=== PATIENT | male | born 1935 | race Caucasian/White ===

== ENCOUNTER 2016-12-08 09:56 | Outpatient (CLI) | payer MEDICARE, OTHER | END 2016-12-08 09:58 | LOC: LAB 09:56 | PROVIDERS: ATTEND Internal Medicine Cardiovascular Disease | DX: Z51.81 Encounter for therapeutic drug level monitoring (principal); Z79.01 Long term (current) use of anticoagulants; I48.0 Paroxysmal atrial fibrillation | CPT/HCPCS: 36415; 85610 ==

== ENCOUNTER 2016-12-23 10:27 | Outpatient (CLI) | payer MEDICARE, OTHER | END 2016-12-23 10:30 | LOC: LAB 10:27 | PROVIDERS: ATTEND Internal Medicine Cardiovascular Disease | DX: I48.0 Paroxysmal atrial fibrillation (principal); Z79.01 Long term (current) use of anticoagulants | CPT/HCPCS: 36415; 85610 ==

== ENCOUNTER 2017-02-02 09:50 | Outpatient (CLI) | payer MEDICARE, OTHER ==
[2017-02-02 10:38] LABS: eGFR (African) > 60; eGFR (Non-African) > 60
== END 2017-02-02 09:52 ==
LOC: LAB 09:50
PROVIDERS: ATTEND Internal Medicine Cardiovascular Disease
DX: Z51.81 Encounter for therapeutic drug level monitoring (principal); Z79.01 Long term (current) use of anticoagulants; I48.0 Paroxysmal atrial fibrillation
CPT/HCPCS: 36415; 80048; 85610

== ENCOUNTER 2017-03-04 09:44 | Outpatient (CLI) | payer MEDICARE, OTHER | END 2017-03-04 09:45 | LOC: LAB 09:44 | PROVIDERS: ATTEND Internal Medicine Cardiovascular Disease | DX: Z51.81 Encounter for therapeutic drug level monitoring (principal); Z79.01 Long term (current) use of anticoagulants; I48.0 Paroxysmal atrial fibrillation | CPT/HCPCS: 36415; 85610 ==

== ENCOUNTER 2017-04-15 09:30 | Outpatient (CLI) | payer MEDICARE, OTHER | END 2017-04-15 09:32 | LOC: LAB 09:30 | PROVIDERS: ATTEND Internal Medicine Cardiovascular Disease | DX: I48.91 Unspecified atrial fibrillation (principal); Z79.01 Long term (current) use of anticoagulants | CPT/HCPCS: 36415; 85610 ==

== ENCOUNTER 2017-05-14 08:23 | Outpatient (CLI) | payer MEDICARE, OTHER | END 2017-05-14 08:24 | LOC: LAB 08:23 | PROVIDERS: ATTEND Internal Medicine Cardiovascular Disease | DX: I48.0 Paroxysmal atrial fibrillation (principal) | CPT/HCPCS: 36415; 85610 ==

== ENCOUNTER 2017-05-28 10:22 | Outpatient (CLI) | payer MEDICARE, OTHER | END 2017-05-28 10:23 | LOC: LAB 10:22 | PROVIDERS: ATTEND Internal Medicine Cardiovascular Disease | DX: I48.0 Paroxysmal atrial fibrillation (principal) | CPT/HCPCS: 36415; 85610 ==

== ENCOUNTER 2017-06-18 08:43 | Outpatient (CLI) | payer MEDICARE, OTHER | END 2017-06-18 09:06 | LOC: LAB 08:43 | PROVIDERS: ATTEND Internal Medicine Cardiovascular Disease | DX: I48.0 Paroxysmal atrial fibrillation (principal) | CPT/HCPCS: 36415; 85610 ==

== ENCOUNTER 2017-07-22 09:28 | Outpatient (CLI) | payer MEDICARE, OTHER | END 2017-07-22 09:30 | LOC: LAB 09:28 | PROVIDERS: ATTEND Internal Medicine Cardiovascular Disease | DX: I48.0 Paroxysmal atrial fibrillation (principal) | CPT/HCPCS: 36415; 85610 ==

== ENCOUNTER 2017-09-02 09:00 | Outpatient (CLI) | payer MEDICARE, OTHER | END 2017-09-02 09:02 | LOC: LAB 09:00 | PROVIDERS: ATTEND Internal Medicine Cardiovascular Disease | DX: I48.0 Paroxysmal atrial fibrillation (principal) | CPT/HCPCS: 36415; 85610 ==

== ENCOUNTER 2017-10-14 10:08 | Outpatient (CLI) | payer MEDICARE, OTHER | END 2017-10-14 10:30 | LOC: LAB 10:08 | PROVIDERS: ATTEND Internal Medicine Cardiovascular Disease | DX: I48.0 Paroxysmal atrial fibrillation (principal) | CPT/HCPCS: 36415; 85610 ==

== ENCOUNTER 2017-11-20 09:36 | Outpatient (CLI) | payer MEDICARE, OTHER ==
[2017-11-20 10:02] LABS: MEAN CORPUSCULAR HEMOGLOBIN 32.6 pg (28.0-34.0); MEAN CORPUSCULAR VOLUME 95.8 fl (80.0-100.0)
[2017-11-20 10:35] LABS: SEGMENTED NEUTROPHILS % 42 % (39-79)
[2017-11-20 11:25] LABS: eGFR (African) > 60; eGFR (Non-African) > 60
== END 2017-11-20 09:37 ==
LOC: LAB 09:36
PROVIDERS: ATTEND Internal Medicine Cardiovascular Disease
DX: I48.0 Paroxysmal atrial fibrillation (principal); Z51.81 Encounter for therapeutic drug level monitoring
CPT/HCPCS: 36415; 80053; 82306; 84439; 84443; 84481; 85025; 85610; 86038; 86140

== ENCOUNTER 2018-01-04 09:38 | Outpatient (CLI) | payer MEDICARE, OTHER | END 2018-01-04 09:40 | LOC: LAB 09:38 | PROVIDERS: ATTEND Internal Medicine Cardiovascular Disease | DX: I48.0 Paroxysmal atrial fibrillation (principal); Z79.899 Other long term (current) drug therapy | CPT/HCPCS: 36415; 85610 ==

== ENCOUNTER 2018-02-16 08:48 | Outpatient (CLI) | payer MEDICARE, OTHER | END 2018-02-16 08:50 | LOC: LAB 08:48 | PROVIDERS: ATTEND Internal Medicine Cardiovascular Disease | DX: I48.0 Paroxysmal atrial fibrillation (principal); Z79.899 Other long term (current) drug therapy | CPT/HCPCS: 36415; 85610 ==

== ENCOUNTER 2018-03-22 10:18 | Outpatient (CLI) | payer MEDICARE, OTHER | END 2018-03-26 10:20 | LOC: LAB 10:18 | PROVIDERS: ATTEND Internal Medicine Cardiovascular Disease | DX: I48.0 Paroxysmal atrial fibrillation (principal); Z79.899 Other long term (current) drug therapy | CPT/HCPCS: 36415; 85610 ==

== ENCOUNTER 2018-03-26 08:49 | Outpatient (CLI) | payer MEDICARE, OTHER | END 2018-03-26 08:50 | LOC: LAB 08:49 | PROVIDERS: ATTEND Internal Medicine Cardiovascular Disease | DX: Z79.899 Other long term (current) drug therapy (principal); I48.0 Paroxysmal atrial fibrillation | CPT/HCPCS: 36415; 85610 ==

== ENCOUNTER 2018-03-29 07:50 | Outpatient (CLI) | payer MEDICARE, OTHER ==
[2018-03-29 08:22] LABS: BASOPHILS % 0.3 (0.0-1.5); EOSINOPHILS % 0.5 % (0.0-6.8); MEAN CORPUSCULAR HEMOGLOBIN 32.1 pg (28.0-34.0); MEAN CORPUSCULAR VOLUME 96.1 fl (80.0-100.0); MONOCYTES % 1.3 % (0.0-11.0); NEUTROPHILS # 1.9 # k/uL (1.4-7.7)
== END 2018-03-29 07:52 ==
LOC: LAB 07:50
PROVIDERS: ATTEND Family Medicine
DX: R79.1 Abnormal coagulation profile (principal)
CPT/HCPCS: 36415; 85025; 85610

== ENCOUNTER 2018-04-01 08:32 | Outpatient (CLI) | payer MEDICARE, OTHER | END 2018-04-01 08:33 | LOC: LAB 08:32 | PROVIDERS: ATTEND Internal Medicine Cardiovascular Disease | DX: Z79.01 Long term (current) use of anticoagulants (principal); I48.0 Paroxysmal atrial fibrillation | CPT/HCPCS: 36415; 85610 ==

== ENCOUNTER 2018-04-05 09:33 | Outpatient (CLI) | payer MEDICARE, OTHER | END 2018-04-05 09:35 | LOC: LAB 09:33 | PROVIDERS: ATTEND Internal Medicine Cardiovascular Disease | DX: I48.0 Paroxysmal atrial fibrillation (principal); Z79.01 Long term (current) use of anticoagulants | CPT/HCPCS: 36415; 85610 ==

== ENCOUNTER 2018-04-12 09:37 | Outpatient (CLI) | payer MEDICARE, OTHER | END 2018-04-12 09:40 | LOC: LAB 09:37 | PROVIDERS: ATTEND Internal Medicine Cardiovascular Disease | DX: I48.0 Paroxysmal atrial fibrillation (principal); Z79.01 Long term (current) use of anticoagulants | CPT/HCPCS: 36415; 85610 ==

== ENCOUNTER 2018-04-26 09:37 | Outpatient (CLI) | payer MEDICARE, OTHER | END 2018-04-26 09:40 | LOC: LAB 09:37 | PROVIDERS: ATTEND Internal Medicine Cardiovascular Disease | DX: I48.0 Paroxysmal atrial fibrillation (principal); Z79.01 Long term (current) use of anticoagulants | CPT/HCPCS: 36415; 85610 ==

== ENCOUNTER 2018-04-29 09:57 | Outpatient (CLI) | payer MEDICARE, OTHER | END 2018-04-29 10:00 | LOC: LAB 09:57 | PROVIDERS: ATTEND Internal Medicine Cardiovascular Disease | DX: I48.0 Paroxysmal atrial fibrillation (principal); Z79.01 Long term (current) use of anticoagulants | CPT/HCPCS: 36415; 85610 ==

== ENCOUNTER 2018-05-03 09:01 | Outpatient (CLI) | payer MEDICARE, OTHER | END 2018-05-03 09:03 | LOC: LAB 09:01 | PROVIDERS: ATTEND Internal Medicine Cardiovascular Disease | DX: I48.0 Paroxysmal atrial fibrillation (principal) | CPT/HCPCS: 36415; 85610 ==

== ENCOUNTER 2018-05-12 09:30 | Outpatient (CLI) | payer MEDICARE, OTHER | END 2018-05-12 09:32 | LOC: LAB 09:30 | PROVIDERS: ATTEND Internal Medicine Cardiovascular Disease | DX: I48.0 Paroxysmal atrial fibrillation (principal); Z79.01 Long term (current) use of anticoagulants | CPT/HCPCS: 36415; 85610 ==

== ENCOUNTER 2018-05-24 09:24 | Outpatient (CLI) | payer MEDICARE, OTHER | END 2018-05-24 09:25 | LOC: LAB 09:24 | PROVIDERS: ATTEND Internal Medicine Cardiovascular Disease | DX: Z79.01 Long term (current) use of anticoagulants (principal); I48.91 Unspecified atrial fibrillation | CPT/HCPCS: 36415; 85610 ==

== ENCOUNTER 2018-06-29 09:19 | Outpatient (CLI) | payer MEDICARE, OTHER | END 2018-06-29 09:20 | LOC: LAB 09:19 | PROVIDERS: ATTEND Internal Medicine Cardiovascular Disease | DX: I48.0 Paroxysmal atrial fibrillation (principal); Z79.01 Long term (current) use of anticoagulants | CPT/HCPCS: 36415; 85610 ==

== ENCOUNTER 2018-07-13 09:54 | Outpatient (CLI) | payer MEDICARE, OTHER | END 2018-07-13 09:55 | LOC: LAB 09:54 | PROVIDERS: ATTEND Internal Medicine Cardiovascular Disease | DX: Z79.01 Long term (current) use of anticoagulants (principal); I48.0 Paroxysmal atrial fibrillation | CPT/HCPCS: 36415; 85610 ==

== ENCOUNTER 2018-08-03 09:29 | Outpatient (CLI) | payer MEDICARE, OTHER | END 2018-08-03 09:30 | LOC: LAB 09:29 | PROVIDERS: ATTEND Internal Medicine Cardiovascular Disease | DX: I48.0 Paroxysmal atrial fibrillation (principal); Z79.01 Long term (current) use of anticoagulants | CPT/HCPCS: 36415; 85610 ==

== ENCOUNTER 2018-10-12 09:36 | Outpatient (CLI) | payer MEDICARE, OTHER | END 2018-10-12 09:38 | LOC: LAB 09:36 | PROVIDERS: ATTEND Internal Medicine Cardiovascular Disease | DX: I48.0 Paroxysmal atrial fibrillation (principal); Z79.01 Long term (current) use of anticoagulants | CPT/HCPCS: 36415; 85610 ==

== ENCOUNTER 2018-11-09 09:18 | Outpatient (CLI) | payer MEDICARE, OTHER | END 2018-11-09 09:20 | LOC: LAB 09:18 | PROVIDERS: ATTEND Internal Medicine Cardiovascular Disease | DX: I48.0 Paroxysmal atrial fibrillation (principal); Z79.01 Long term (current) use of anticoagulants | CPT/HCPCS: 36415; 85610 ==

== ENCOUNTER 2018-12-14 09:52 | Outpatient (CLI) | payer MEDICARE, OTHER | END 2018-12-14 09:54 | LOC: LAB 09:52 | PROVIDERS: ATTEND Internal Medicine Cardiovascular Disease | DX: I48.0 Paroxysmal atrial fibrillation (principal); Z79.01 Long term (current) use of anticoagulants | CPT/HCPCS: 36415; 85610 ==

== ENCOUNTER 2019-01-10 10:43 | Outpatient (CLI) | payer MEDICARE, OTHER | END 2019-01-10 10:44 | LOC: LAB 10:43 | PROVIDERS: ATTEND Internal Medicine Cardiovascular Disease | DX: I48.0 Paroxysmal atrial fibrillation (principal); Z79.01 Long term (current) use of anticoagulants | CPT/HCPCS: 36415; 85610 ==

== ENCOUNTER 2019-01-10 13:06 | Outpatient (CLI) | payer MEDICARE, OTHER ==
--- NOTE | 2019-01-10 13:51 | Diagnostic Imaging Report ---
GERBER REYNOLDS [facility] [id number] [facility].[address] [id number] Report Submission Date: Jan 10, 2019 1:49:42 PM CDT Patient Study Name: ELDER GORDON Date: Jan 10, 2019 1:20:32 PM CDT Modality Type: DX Gender: M Description: CHEST 2VIEW : 35 Institution: [facility] Physician: GERBER REYNOLDS EXAMINATION: CHEST 2VIEW HISTORY: cough congestion for a couple of days at the COMPARISON: None FINDINGS: Median sternotomy wires are intact and well aligned. There are mild diffuse bilateral interstitial opacities. There are small bilateral pleural effusions. There is no pneumothorax. The heart size is normal. The visible bony thorax is intact. IMPRESSION: Mild diffuse bilateral interstitial opacities, which may represent mild pulmonary edema and/or interstitial pneumonia in the appropriate clinical setting. Mild bilateral pleural effusions. Electronically signed on Jan 10, 2019 1:49:42 PM CDT by: César HOBSON
== END 2019-01-10 13:08 ==
LOC: RAD 13:06
PROVIDERS: ATTEND Family Medicine
DX: R05 Cough (principal); R91.8 Other nonspecific abnormal finding of lung field
CPT/HCPCS: 71046

== ENCOUNTER 2019-01-11 10:45 | Outpatient (CLI) | payer MEDICARE, OTHER ==
[2019-01-11 11:19] LABS: eGFR (Non-African) 51
--- NOTE | 2019-01-11 13:05 | Diagnostic Imaging Report ---
GERBER REYNOLDS [facility] [address] [id number] Report Submission Date: Jan 11, 2019 12:52:49 PM CDT Patient Study Name: ELDER GORDON Date: Jan 11, 2019 11:31:42 AM CDT Modality Type: CT Gender: M Description: CT CHEST W/ CONTRAST : 35 Institution: [facility] Physician: GERBER REYNOLDS Examination: CT chest History: COUGH, DRAINAGE, HEMOPTYSIS. Comparison exams: Plain film chest CT 10 January 2019 Technique: CT chest with contrast protocol Findings: Bilateral pleural effusions with adjacent atelectasis. Interstitial fullness bilaterally. Thoracic aorta demonstrates peripheral atherosclerotic disease. No aneurysm. Anterior mediastinum and adam are without gross mass or pathologic adenopathy. Cardiac silhouette prominent. No pericardial effusion. Vascular calcifications. Lower neck structures, upper abdominal organs, and osseous structures are without gross abnormality. Impression: Bilateral pleural effusions associated with generalized interstitial prominence suggesting increased volume status/congestive failure. Cardiomegaly. Electronically signed on Jan 11, 2019 12:52:49 PM CDT by: Zuhair HOBSON
== END 2019-01-11 10:47 ==
LOC: RAD 10:45
PROVIDERS: ATTEND Family Medicine
DX: J90 Pleural effusion, not elsewhere classified (principal)
CPT/HCPCS: 71260; 80053; 83880; Q9967

== ENCOUNTER 2019-02-21 09:54 | Outpatient (CLI) | payer MEDICARE, OTHER | END 2019-02-21 09:56 | LOC: LAB 09:54 | PROVIDERS: ATTEND Internal Medicine Cardiovascular Disease | DX: I48.0 Paroxysmal atrial fibrillation (principal); Z79.01 Long term (current) use of anticoagulants | CPT/HCPCS: 36415; 85610 ==

== ENCOUNTER 2019-04-07 08:00 | Outpatient (CLI) | payer MEDICARE, OTHER | END 2019-04-07 08:05 | disposition home or self-care (01) | LOC: LAB 08:00 | PROVIDERS: ATTEND Internal Medicine Cardiovascular Disease | DX: Z79.01 Long term (current) use of anticoagulants (principal); Z51.81 Encounter for therapeutic drug level monitoring; I48.0 Paroxysmal atrial fibrillation | CPT/HCPCS: 36415; 85610 ==

== ENCOUNTER 2019-05-19 09:25 | Outpatient (CLI) | payer MEDICARE, OTHER | END 2019-05-19 09:27 | LOC: LAB 09:25 | PROVIDERS: ATTEND Internal Medicine Cardiovascular Disease | DX: I48.0 Paroxysmal atrial fibrillation (principal) | CPT/HCPCS: 36415; 85610 ==

== ENCOUNTER 2019-07-01 10:31 | Outpatient (CLI) | payer MEDICARE, OTHER | END 2019-07-01 10:33 | LOC: LAB 10:31 | PROVIDERS: ATTEND Internal Medicine Cardiovascular Disease | DX: I48.91 Unspecified atrial fibrillation (principal); Z79.01 Long term (current) use of anticoagulants | CPT/HCPCS: 36415; 85610 ==

== ENCOUNTER 2019-08-04 10:02 | Outpatient (CLI) | payer MEDICARE, OTHER | END 2019-08-04 10:20 | LOC: LAB 10:02 | PROVIDERS: ATTEND Internal Medicine Cardiovascular Disease | DX: I48.91 Unspecified atrial fibrillation (principal); Z79.01 Long term (current) use of anticoagulants; Z51.81 Encounter for therapeutic drug level monitoring | CPT/HCPCS: 36415; 85610 ==

== ENCOUNTER 2019-08-29 10:18 | Outpatient (CLI) | payer MEDICARE, OTHER | END 2019-08-29 10:23 | LOC: LAB 10:18 | PROVIDERS: ATTEND Internal Medicine Cardiovascular Disease | DX: Z51.81 Encounter for therapeutic drug level monitoring (principal); Z79.01 Long term (current) use of anticoagulants; I48.91 Unspecified atrial fibrillation | CPT/HCPCS: 36415; 85610 ==

== ENCOUNTER 2019-10-10 10:19 | Outpatient (CLI) | payer MEDICARE, OTHER ==
[2019-10-10 11:17] LABS: eGFR (Non-African) 59
== END 2019-10-10 10:24 ==
LOC: LAB 10:19
PROVIDERS: ATTEND Internal Medicine Cardiovascular Disease
DX: I48.91 Unspecified atrial fibrillation (principal); I10 Essential (primary) hypertension; I25.10 Atherosclerotic heart disease of native coronary artery without angina pectoris; Z79.01 Long term (current) use of anticoagulants; Z98.890 Other specified postprocedural states
CPT/HCPCS: 36415; 80048; 85610

== ENCOUNTER 2019-10-31 09:12 | Outpatient (CLI) | payer MEDICARE, OTHER | END 2019-10-31 09:17 | LOC: LAB 09:12 | PROVIDERS: ATTEND Internal Medicine Cardiovascular Disease | DX: I48.91 Unspecified atrial fibrillation (principal); Z79.01 Long term (current) use of anticoagulants | CPT/HCPCS: 36415; 85610 ==